=== PATIENT | female | born 1985 | race Caucasian/White ===

== ENCOUNTER → 2019-12-07 15:47 | Outpatient (CLI) | payer OTHER, SELFPAY ==
[2019-12-07 17:41] LABS: HCG Quantitative /Beta subunit < 2.39 mIU/mL
== END ==
PROVIDERS: PCP Family Medicine; Visit Provider Family Medicine
DX: N91.2 Amenorrhea, unspecified (principal)
CPT/HCPCS: 36415; 84702

== ENCOUNTER → 2021-03-28 15:00 | Outpatient (CLI) | payer OTHER, SELFPAY ==
[2021-03-28 15:45] LABS: Add Manual Diff / Slide Review NO; Basophils Absolute Auto 0 /uL (0-100); Basophils Percent Auto 0.7 % (0-2); Eosinophils Absolute Auto 0 /uL (0-450); Hematocrit 38.7 % (36-46); Lymphocytes Absolute Auto 1300 /uL (1100-4500); Lymphocytes Percent Auto 26.3 % (25-40); Mean Corpuscular HGB Conc 33.6 % (30-36); Mean Corpuscular Hemoglobin 30.5 PG (26-34); Mean Corpuscular Volume 90.9 fL (80-100); Monocytes Absolute Auto 300 /uL (0-900); Monocytes Percent Auto 5.2 % (3-14); Neutrophils Absolute Auto 3300 /uL (1500-7000); Neutrophils Percent Auto 66.8 % (50-75); Platelet Count 208 X10^3/uL (150-400); Red Blood Cell Count 4.26 X10^6/uL (4.0-5.2); Red Cell Distribution Width 13.7 % (11.6-14.8)
[2021-03-28 16:00] LABS: Alanine Aminotransferase 10 IU/L (<35); Albumin 4.5 g/dL (3.5-5.0); Albumin Globulin Ratio 1.5 (1.0-2.8); Alkaline Phosphatase 68 U/L (38-126); Aspartate Aminotransferase 21 IU/L (14-36); BUN Creatinine Ratio 21.7 (6-22); Bilirubin Total 0.4 mg/dL (0.2-1.3); Blood Urea Nitrogen 15 mg/dL (7-17); Calcium 9.6 mg/dL (8.4-10.2); Carbon Dioxide 27 mmol/L (22-32); Chloride 102 mmol/L (98-107); Estimated Glomerular Filt Rate > 60.0 mL/min (>60); Glucose 95 mg/dL (70-100); HEMOLYSIS < 15 (0-50); Potassium 3.8 mmol/L (3.4-5.1); Sodium 137 mmol/L (137-145); Total Protein 7.5 g/dL (6.3-8.2)
[2021-03-28 17:50] LABS: TSH w/ Reflex to FT4 1.63 uIU/mL (0.47-4.68)
[2021-03-28 19:09] LABS: Estradiol, Total 33.4 pg/mL
[2021-04-01 11:09] LABS: Anti Mullerian Hormone 1.67 ng/mL (.)
== END ==
PROVIDERS: PCP Family Medicine; Referring Provider Family Medicine; Visit Provider Family Medicine
DX: N97.9 Female infertility, unspecified (principal)
CPT/HCPCS: 36415; 80053; 82397; 82670; 83001; 84443; 85025

== ENCOUNTER → 2021-08-03 12:37 | Outpatient (CLI) | payer OTHER, SELFPAY ==
--- NOTE | 2021-08-03 12:39 | DI.RAD.S_ITS ---
PROCEDURE: HL HYSTEROSAPINGOGRAPHY INDICATIONS: Infertility COMPARISON: None. FINDINGS: Patient had a documented negative test prior to the study. Following speculum insertion, a balloon-tip catheter was inserted into the cervical canal, and secured by inflating the balloon. Contrast was then injected into the endometrial canal. Uterus: The uterine cavity appears normal in size and morphology, without synechiae or masses. Fallopian tubes: Both fallopian tubes fill with contrast, and appear normal in caliber and morphology. There is ready dispersion of contrast into the peritoneal cavity. IMPRESSION: Unremarkable hysterosalpingogram. Dictated by: Morgan Mccall M.D. on 08/03/2021 at 13:59 Approved by: Morgan Mccall M.D. on 08/03/2021 at 14:00
--- NOTE | 2021-08-06 16:18 | P.PCN_ITS ---
Procedures Date/Time Date of procedure: 08/03/21 Time of procedure: 13:30 General Procedure description: Hysterosalpingogram Complications: none Informed consent given: Yes Consent signed: Yes Procedure Notes: After informed consent was obtained, the patient was placed on an overturned bedpan with her pelvis elevated in the fluoroscopy suite. A bivalve speculum was placed into the vagina. The cervix was cleaned x3 with Betadine. A single-tooth tenaculum was placed on the anterior lip of the cervix. The hysterosalpingogram catheter passed easily into the endometrial cavity. The balloon was inflated with 3 cc of air. The bivalve speculum was removed from the vagina. 15 cc of Isovue-300 were injected into the uterus under direct fluoroscopic examination. The contours of the uterus were found to be normal. There was immediate spill from both tubes. Isovue-300 was aspirated into the syringe. The HSG catheter was removed from the uterus. The single- tooth tenaculum was removed from the anterior lip of the cervix. The patient was taken out of pelvic tilt. Sponge, and instrument counts were correct x2. The patient tolerated the procedure well.
== END ==
PROVIDERS: PCP Family Medicine; Referring Provider Obstetrics & Gynecology; Visit Provider Obstetrics & Gynecology
DX: Z31.69 Encounter for other general counseling and advice on procreation (principal)
CPT/HCPCS: 58340; 74740

== ENCOUNTER → 2021-12-07 15:39 | Outpatient (CLI) | payer BC, SELFPAY ==
--- NOTE | 2021-12-07 15:41 | DI.US.S_ITS ---
PROCEDURE: US OB <= 14 WEEKS FETUS INDICATIONS: DATING OUTSIDE/PRIOR DATING DATA: Last menstrual period (LMP): 10/08/2021. LMP-based estimated date of delivery (LAY): 07/15/2022. First dating scan (date and location): This exam. Estimated date of delivery (LAY) from first dating scan: 07/30/2022. The calculations are made using the ultrasound LAY of 07/30/2022. TECHNIQUE: Real-time scanning was performed of the fetus and maternal pelvic organs, with image documentation. Endovaginal scanning was also performed to better visualize the fetus and maternal ovaries. COMPARISON: [facility], , HYSTEROSAPINGOGRAPHY, 08/03/2021, 13:34. [facility], [place], US PELVIC COMPLETE, 06/12/2021, 15:48. FINDINGS: Embryo: There is an IUP. Hahira-rump length measures 0.6 cm, corresponding to ultrasound LAY 6 weeks 3 days. The yolk sac appears enlarged. Heart rate: No heart tone. Maternal organs: There is a small cystic structure in the right adnexa with a small nodular soft tissue. Left ovary is not visualized. IMPRESSION: 1. There is an IUP with the estimated gestational age 6 weeks 3 days based on the current ultrasound. No heart tone is present. The yolk sac appears enlarged. The ultrasound findings are concerning for 1st trimester failure. Please correlate with quantitative serum beta HCG. If clinically indicated, follow-up imaging may be helpful. 2. There is a cystic structure with a small nodular soft tissue. It is most likely a corpus luteum. Heterotopic is not entirely excluded. Recommend clinical follow-up and imaging follow-up as needed. I reviewed the result with the patient. Dr. Haywood was informed of the result by building coordinator at 1650 hours on 12/07/2021. We strive to produce accurate, complete, and clear reports of imaging services. To assist us in improving patient care, this report was composed using standard report templates and voice recognition software. Therefore, it may contain abnormal punctuation, insertions and/or omissions. Occasional wrong-word or sound-alike substitutions may occur. Though we review the report and make efforts to correct it, we do recommend that the report be read carefully in proper context to recognize any text inaccuracies. Dictated by: Arnaldo Pino M.D. on 12/07/2021 at 16:59 Approved by: Arnaldo Pino M.D. on 12/07/2021 at 17:08
[2021-12-07 17:44] LABS: Add Manual Diff / Slide Review NO; Basophils Absolute Auto 0 /uL (0-100); Eosinophils Absolute Auto 100 /uL (0-450); Hemoglobin 12.9 g/dL (12.0-16.0); Lymphocytes Absolute Auto 1600 /uL (1100-4500); Lymphocytes Percent Auto 32.6 % (25-40); Mean Corpuscular Hemoglobin 30.5 PG (26-34); Mean Corpuscular Volume 89.8 fL (80-100); Monocytes Absolute Auto 300 /uL (0-900); Monocytes Percent Auto 7.1 % (3-14); Neutrophils Absolute Auto 2900 /uL (1500-7000); Neutrophils Percent Auto 58.3 % (50-75); Platelet Count 191 X10^3/uL (150-400); Red Blood Cell Count 4.23 X10^6/uL (4.0-5.2); Red Cell Distribution Width 13.3 % (11.6-14.8); White Blood Cell Count 4.9 X10^3/uL (4.5-11.0)
[2021-12-07 18:29] LABS: Appearance Urine UA CLEAR; Bilirubin Urine UA NEGATIVE (NEGATIVE); Color Urine UA YELLOW; Glucose Urine UA NEGATIVE (Negative); Ketones Urine UA NEGATIVE (NEGATIVE); Leukocyte Esterase Urine UA NEGATIVE (NEGATIVE); Nitrite Urine UA NEGATIVE (Negative); Occult Blood Urine UA NEGATIVE (Negative); Protein Urine UA NEGATIVE (Negative); Urobilinogen Urine UA 0.2 E.U./dL (0.2)
[2021-12-07 18:30] LABS: pH Urine UA 6.5 (4.5-8.0)
[2021-12-07 18:31] LABS: Hepatitis B Surface Antigen NEGATIVE s/c (NEGATIVE)
[2021-12-07 18:38] LABS: HCG Quantitative /Beta subunit 15779 mIU/mL
[2021-12-07 18:51] LABS: HIV 1 & 2 Ab/Ag 4th Gen Combo NEGATIVE (NEGATIVE); Hep C Virus Ab w/Reflex Quant NEGATIVE s/c (NEGATIVE)
[2021-12-08 07:51] LABS: RPR Screen Non Reactive (Non Reactive)
[2021-12-08 08:21] LABS: Varicella IgG Antibody 3127 index (Immune >165)
== END ==
PROVIDERS: PCP Family Medicine; Referring Provider Family Medicine; Visit Provider Family Medicine
DX: Z36.87 Encounter for antenatal screening for uncertain dates (principal); Z3A.01 Less than 8 weeks gestation of pregnancy
CPT/HCPCS: 36415; 76801; 76817; 80055; 81003; 84702; 86787; 86803; 86850; 86900; 86901; 87086; 87389

== ENCOUNTER → 2021-12-09 11:56 | Outpatient (CLI) | payer BC, SELFPAY ==
[2021-12-09 13:43] LABS: HCG Quantitative /Beta subunit 15249 mIU/mL
== END ==
PROVIDERS: PCP Family Medicine; Referring Provider Family Medicine; Visit Provider Family Medicine
DX: Z34.00 Encounter for supervision of normal first pregnancy, unspecified trimester (principal)
CPT/HCPCS: 36415; 84702

== ENCOUNTER → 2021-12-16 11:48 | Outpatient (CLI) | payer BC, SELFPAY ==
[2021-12-16 13:42] LABS: HCG Quantitative /Beta subunit 5120.3 mIU/mL
== END ==
PROVIDERS: PCP Family Medicine; Referring Provider Family Medicine; Visit Provider Family Medicine
DX: O03.9 Complete or unspecified spontaneous abortion without complication (principal)
CPT/HCPCS: 36415; 84702

== ENCOUNTER → 2021-12-23 12:35 | Outpatient (CLI) | payer BC, SELFPAY ==
[2021-12-23 14:05] LABS: HCG Quantitative /Beta subunit 2477.8 mIU/mL
== END ==
PROVIDERS: PCP Family Medicine; Referring Provider Family Medicine; Visit Provider Family Medicine
DX: O03.9 Complete or unspecified spontaneous abortion without complication (principal)
CPT/HCPCS: 36415; 84702

== ENCOUNTER → 2021-12-30 12:01 | Outpatient (CLI) | payer BC, SELFPAY ==
[2021-12-30 14:43] LABS: HCG Quantitative /Beta subunit 764.9 mIU/mL
== END ==
PROVIDERS: PCP Family Medicine; Referring Provider Family Medicine; Visit Provider Family Medicine
DX: O03.9 Complete or unspecified spontaneous abortion without complication (principal)
CPT/HCPCS: 36415; 84702

== ENCOUNTER → 2022-01-06 12:13 | Outpatient (CLI) | payer BC, SELFPAY ==
[2022-01-06 13:41] LABS: HCG Quantitative /Beta subunit 248.8 mIU/mL
== END ==
PROVIDERS: PCP Family Medicine; Referring Provider Family Medicine; Visit Provider Family Medicine
DX: O03.9 Complete or unspecified spontaneous abortion without complication (principal)
CPT/HCPCS: 36415; 84702

== ENCOUNTER → 2022-01-13 12:16 | Outpatient (CLI) | payer BC, SELFPAY ==
[2022-01-13 13:29] LABS: HCG Quantitative /Beta subunit 87.4 mIU/mL
== END ==
PROVIDERS: PCP Family Medicine; Referring Provider Family Medicine; Visit Provider Family Medicine
DX: O03.9 Complete or unspecified spontaneous abortion without complication (principal)
CPT/HCPCS: 36415; 84702

== ENCOUNTER → 2022-01-20 12:23 | Outpatient (CLI) | payer BC, SELFPAY ==
[2022-01-20 13:44] LABS: HCG Quantitative /Beta subunit 24.5 mIU/mL
== END ==
PROVIDERS: PCP Family Medicine; Referring Provider Family Medicine; Visit Provider Family Medicine
DX: O03.9 Complete or unspecified spontaneous abortion without complication (principal)
CPT/HCPCS: 36415; 84702